=== PATIENT | male | born 1970 | race American Indian/Alaskan Native ===

== ENCOUNTER 2018-04-08 14:05 | Emergency (ER) | payer MEDICARE, MEDICAID ==
[~2018-04-08] VITALS: Ht 170.2 cm; Wt 125.0 kg
[~2018-04-08 14:05] MED LIST: ACET-2119 PO; ATEN25TA PO; BAC10T PO; DULO-31 PO; MELO15TA13 PO; SIMV20TA5 PO; TRAM50TA2 PO
[2018-04-08 14:19] VITALS: BP 130/80
== END 2018-04-08 14:44 | disposition home or self-care (01) ==
LOC: ER 14:05
DX: B34.9 Viral infection, unspecified (principal); E78.00 Pure hypercholesterolemia, unspecified; I10 Essential (primary) hypertension; G89.29 Other chronic pain; F12.90 Cannabis use, unspecified, uncomplicated; Z88.1 Allergy status to other antibiotic agents; Z88.5 Allergy status to narcotic agent; Z79.899 Other long term (current) drug therapy
CPT/HCPCS: 99281

== ENCOUNTER 2022-01-22 13:23 | Outpatient (CLI) | payer MEDICARE, MEDICAID ==
[~2022-01-22 13:23] MED LIST changes: +SIMV-42 PO; -SIMV20TA5 PO
[2022-01-22 15:54] LABS: BASOPHILS % (AUTO) 0.4 % (0-1); EOSINOPHILS % (AUTO) 0.3 % (0-6); LYMPHOCYTES # (AUTO) 2.5 X10'3 (1.1-4.8); LYMPHOCYTES % (AUTO) 25.3 % (21-51); MEAN CORPUSCULAR HEMOGLOBIN 30.5 PG (27.0-31.0); MEAN CORPUSCULAR HGB CONC 33.5 g/dL (33.0-36.5); MEAN CORPUSCULAR VOLUME 91.2 FL (78-98); MEAN PLATELET VOLUME 9.2 FL (7.4-10.4); MONOCYTES # (AUTO) 0.6 X10'3 (0-0.9); MONOCYTES % (AUTO) 6.6 % (2-12); NEUTROPHILS # (AUTO) 6.5 X10'3 (1.8-7.7); NEUTROPHILS % (AUTO) 67.4 % (42-75); PRE OP HEMATOCRIT 46.8 % (42.0-52.0); PRE OP HEMOGLOBIN 15.7 g/dL (14.0-17.9); PRE OP PLATELET COUNT 252 X10'3 (140-440); RED BLOOD COUNT 5.14 X10'6 (4.70-6.10); RED CELL DISTRIBUTION WIDTH 14.2 % (11.5-14.5)
[2022-01-22 16:10] LABS: ALBUMIN/GLOBULIN RATIO 1.1 (1.1-1.5); ALKALINE PHOSPHATASE 119 IU/L (46-116); BLOOD UREA NITROGEN 11 MG/DL (7-18); BUN/CREATININE RATIO 9.1 (5.4-32.0); CHLORIDE 103 MMOL/L (99-107); CREATININE 1.21 MG/DL (0.60-1.10); PRE OP ALT 72 U/L (30-65); PRE OP ANION GAP 11 (8-16); PRE OP AST 22 U/L (10-37); PRE OP BILIRUB, TOTAL 0.5 MG/DL (0.0-1.0); PRE OP GLUCOSE 95 MG/DL (70-104); PRE OP POTASSIUM 3.9 MMOL/L (3.4-5.1); PRE OP SODIUM 140 MMOL/L (135-145); TOTAL CARBON DIOXIDE 26.2 MMOL/L (24-32); TOTAL PROTEIN 7.7 G/DL (6.4-8.2); eGFR 63 ML/MIN
[2022-01-22] MEDS ORDERED: LISI20TA28 PO (16:40)
== END 2022-01-22 23:59 | disposition home or self-care (01) ==
LOC: LAB 13:23 → EDSTATUS 01-30 07:30
PROVIDERS: ATTEND Surgery
DX: Z01.818 Encounter for other preprocedural examination (principal); K42.9 Umbilical hernia without obstruction or gangrene; G47.30 Sleep apnea, unspecified; Z79.899 Other long term (current) drug therapy; M19.90 Unspecified osteoarthritis, unspecified site; Z98.890 Other specified postprocedural states
CPT/HCPCS: 36415; 80053; 85025; 87811

== ENCOUNTER 2022-02-04 05:48 | Day surgery (SDC) | payer MEDICARE, MEDICAID ==
[2022-02-03 14:45] LABS: BASOPHILS % (AUTO) 0.5 % (0-1); EOSINOPHILS # (AUTO) 0.1 X10'3 (0-0.9); HEMATOCRIT 47.4 % (42.0-52.0); LYMPHOCYTES # (AUTO) 3.1 X10'3 (1.1-4.8); LYMPHOCYTES % (AUTO) 37.3 % (21-51); MEAN CORPUSCULAR HEMOGLOBIN 30.4 PG (27.0-31.0); MEAN CORPUSCULAR HGB CONC 33.7 g/dL (33.0-36.5); MEAN CORPUSCULAR VOLUME 90.3 FL (78-98); MONOCYTES # (AUTO) 0.6 X10'3 (0-0.9); MONOCYTES % (AUTO) 7.4 % (2-12); NEUTROPHILS # (AUTO) 4.5 X10'3 (1.8-7.7); NEUTROPHILS % (AUTO) 53.8 % (42-75); PLATELET COUNT 241 X10'3 (140-440); RED BLOOD COUNT 5.25 X10'6 (4.70-6.10); RED CELL DISTRIBUTION WIDTH 13.7 % (11.5-14.5); WHITE BLOOD COUNT 8.3 X10'3 (4.5-11.0)
[2022-02-03 14:50] LABS: APTT 32 SECONDS (22-32)
[2022-02-03 14:54] LABS: ALBUMIN 4.1 G/DL (3.4-5.0); ANION GAP 4 (8-16); BLOOD UREA NITROGEN 10 MG/DL (7-18); BUN/CREATININE RATIO 8.6 (5.4-32.0); CALCIUM 9.3 MG/DL (8.5-10.1); CHLORIDE 106 MMOL/L (99-107); CREATININE 1.16 MG/DL (0.60-1.10); GLUCOSE 99 MG/DL (70-104); POTASSIUM 3.8 MMOL/L (3.5-5.1); SODIUM 140 MMOL/L (135-145); TOTAL CARBON DIOXIDE 29.8 MMOL/L (24-32); eGFR 66 ML/MIN
[~2022-02-04] VITALS: Ht 167.6 cm; Wt 135.4 kg
[2022-02-04] VITALS (11 sets, daily range): BP systolic 116–152; BP diastolic 57–87
[~2022-02-04 05:48] MED LIST changes: -ACET-2119 PO; -BAC10T PO; -DULO-31 PO; +LISI20TA28 PO; -MELO15TA13 PO; -TRAM50TA2 PO
[2022-02-04] MEDS ORDERED: LIDOcaine/PRILOcaine 5gm cream TP ONE (06:25)
[2022-02-04] MEDS ORDERED: LORazepam 0.5 MG tablet PO PRN (06:25)
[2022-02-04] MEDS ORDERED: normal saline 1,000 ML IV SCH (06:25)
[2022-02-04] MEDS ORDERED: diphenhydrAMINE 25mg capsule PO PRN (06:25)
[2022-02-04] MEDS ORDERED: DULO20CA50 PO (07:25)
[2022-02-04] MEDS ORDERED: SIMV5TAB58 PO (07:25)
[2022-02-04] MEDS ORDERED: LISI1TAB51 PO (07:25)
[2022-02-04] MEDS ORDERED: nitroGLYCERIN-Tridil 50MG/D5W 250 ML IV ONE (07:31)
[2022-02-04] MEDS ORDERED: iohexol 350MG/ML 100ml bottle IV ONE ×2 (07:32→08:39)
[2022-02-04] MEDS ORDERED: heparin 1,000unit/ml 10ml vial 10 ML ONE (07:32)
[2022-02-04] MEDS ORDERED: verapamil 2.5 mg/ml inj IV ONE (07:32)
[2022-02-04] MEDS ORDERED: midazolam 1 mg/ML 2ml injection ONE (07:32)
[2022-02-04] MEDS ORDERED: fentaNYL/PF 50MCG/1 ML 2ML syringe ONE (07:32)
[2022-02-04] MEDS ORDERED: LIDOcaine 1%/PF 5ML 10 MG/ML VIAL ONE (07:32)
--- NOTE | 2022-02-04 09:15 | NUR ---
Pt sitting up in bed eating ordered breakfast. Pt denies sob, denies cp. Pt site stable. DRSG CD&I, no s/s of bleeding or infection. Pt family at the bedside.
[2022-02-04] MEDS ORDERED: normal saline 1000ml 1,000 ML IV SCH (10:00)
== END 2022-02-04 14:15 | disposition home or self-care (01) ==
LOC: SSTAY O 05:48
PROVIDERS: ATTEND Internal Medicine Cardiovascular Disease
DX: R94.39 Abnormal result of other cardiovascular function study (principal); I25.10 Atherosclerotic heart disease of native coronary artery without angina pectoris; I10 Essential (primary) hypertension; G47.00 Insomnia, unspecified; F41.8 Other specified anxiety disorders; E78.5 Hyperlipidemia, unspecified; E66.9 Obesity, unspecified; M19.90 Unspecified osteoarthritis, unspecified site; G47.33 Obstructive sleep apnea (adult) (pediatric); Z79.899 Other long term (current) drug therapy; Z79.01 Long term (current) use of anticoagulants
CPT/HCPCS: 36415; 76937; 80048; 85025; 85610; 85730; 93005; 93458; 99152; 99153; C1769; C1894; J1644; J2250; J3010; J3490; J7030; Q0163; Q9967; A4615; A5120; A6258; A6402

== ENCOUNTER 2022-03-27 05:42 | Day surgery (SDC) | payer MEDICARE, MEDICAID ==
[2022-03-21 14:36] LABS: BASOPHILS # (AUTO) 0.1 X10'3 (0-0.2); BASOPHILS % (AUTO) 0.5 % (0-1); EOSINOPHILS % (AUTO) 0.2 % (0-6); LYMPHOCYTES # (AUTO) 3.2 X10'3 (1.1-4.8); LYMPHOCYTES % (AUTO) 26.5 % (21-51); MEAN CORPUSCULAR HEMOGLOBIN 30.5 PG (27.0-31.0); MEAN CORPUSCULAR VOLUME 89.6 FL (78-98); MEAN PLATELET VOLUME 8.6 FL (7.4-10.4); MONOCYTES # (AUTO) 0.8 X10'3 (0-0.9); MONOCYTES % (AUTO) 6.3 % (2-12); NEUTROPHILS # (AUTO) 8.1 X10'3 (1.8-7.7); NEUTROPHILS % (AUTO) 66.5 % (42-75); PRE OP HEMATOCRIT 49.3 % (42.0-52.0); PRE OP HEMOGLOBIN 16.8 g/dL (14.0-17.9); PRE OP PLATELET COUNT 273 X10'3 (140-440); RED CELL DISTRIBUTION WIDTH 13.6 % (11.5-14.5)
[2022-03-21 14:44] LABS: ALBUMIN 4.3 G/DL (3.4-5.0); ALBUMIN/GLOBULIN RATIO 1.2 (1.1-1.5); ALKALINE PHOSPHATASE 123 IU/L (46-116); BLOOD UREA NITROGEN 12 MG/DL (7-18); BUN/CREATININE RATIO 9.9 (5.4-32.0); CALCIUM 9.5 MG/DL (8.5-10.1); CHLORIDE 107 MMOL/L (99-107); CREATININE 1.21 MG/DL (0.60-1.10); PRE OP ALT 61 U/L (30-65); PRE OP ANION GAP 9 (8-16); PRE OP AST 23 U/L (10-37); PRE OP BILIRUB, TOTAL 0.6 MG/DL (0.0-1.0); PRE OP GLUCOSE 104 MG/DL (70-104); PRE OP POTASSIUM 3.8 MMOL/L (3.4-5.1); PRE OP SODIUM 142 MMOL/L (135-145); TOTAL CARBON DIOXIDE 26.5 MMOL/L (24-32); eGFR 63 ML/MIN
[~2022-03-27] VITALS: Ht 170.2 cm; Wt 134.5 kg
[2022-03-27] VITALS (16 sets, daily range): BP systolic 112–154; BP diastolic 57–87
--- NOTE | 2022-03-27 05:30 | NUR ---
PT PREPARED FOR SURGERY. SISTER WILL BE PTS RIDE HOME SHE IS 15 MIN AWAY. PT STATES HE IS A HARD IV STICK. IV STARTED WITHOUT DIFFICULTY. PT UP TO THE BATHROOM PRIOR TO SURGERY
[~2022-03-27 05:42] MED LIST changes: +DOCUMENT DATE & TIME OF BETA-BLOCKER PO ONE; +DULO20CA50 PO; -LISI20TA28 PO; +LISI40TA13 PO; -SIMV-42 PO; +SIMV5TAB58 PO; +ceFAZolin inj. 3,000 MG in normal saline 100ml IV soln 100 ML IV ONE; +famotidine 20mg tablet PO ONE; +ringers solution, lacted 1,000 ML IV SCH
[2022-03-27] MEDS ORDERED: LIDOcaine 1% 30ml preserv. free vial ONE (06:02)
[2022-03-27] MEDS ORDERED: BUPIVAcaine/PF 2.5 mg/ml (0.25%) 30ml vial ONE ×2 (06:02→06:59)
[2022-03-27] MEDS ORDERED: BUPIVACAINE liposomal/PF 13.3 MG/ML vial IM ONE ×4 (06:57→08:27)
[2022-03-27] MEDS ORDERED: morphine 2 MG/ML inj. syringe IV PRN (07:35)
[2022-03-27] MEDS ORDERED: proCHLORperazine 10 MG/2 ml inj IV PRN (07:35)
[2022-03-27] MEDS ORDERED: morphine 4 MG/ML inj SYRINge IV PRN (07:35)
[2022-03-27] MEDS ORDERED: ringers solution, lacted 1,000 ML IV SCH (07:35)
[2022-03-27] MEDS ORDERED: ondansetron/PF 4mg/2ml inj IV PRN (07:35)
[2022-03-27] MEDS ORDERED: meperidine/PF 25mg/ml syringe IV PRN ×3 (07:35)
[2022-03-27] MEDS ORDERED: fentaNYL/PF 50MCG/1 ML 2ML syringe ONE (07:36)
[2022-03-27] MEDS ORDERED: midazolam 1 mg/ML 2ml injection ONE (07:36)
[2022-03-27] MEDS ORDERED: propofol inj 20 ML IV ONE (07:37)
[2022-03-27] MEDS ORDERED: rocuronium 10mg/ml inj IV ONE (07:37)
[2022-03-27] MEDS ORDERED: LIDOcaine 1% 30ml preserv. free vial IJ ONE (08:27)
[2022-03-27] MEDS ORDERED: BUPIVAcaine/PF 2.5 mg/ml (0.25%) 30ml vial IJ ONE ×2 (08:27)
[2022-03-27] MEDS ORDERED: ondansetron/PF 4mg/2ml inj ONE (08:41)
[2022-03-27] MEDS ORDERED: dexamethasone sod phosphate 4mg/ml inj. ONE (08:41)
[2022-03-27] MEDS ORDERED: glycopyrrolate 0.2mg/ml inj ONE (08:42)
[2022-03-27] MEDS ORDERED: neostigmine methylsulfate 1 MG/ML 10ml vial ONE (08:42)
[2022-03-27] MEDS ORDERED: sugammadex 200mg/2ml injection IV ONE (08:55)
--- NOTE | 2022-03-27 09:01 | NUR ---
Received from OR via [facility], accompanied by Anesthesiologist DR MARTIN and report given by Anesthesiologist AND CONTINUING EDUCATION DEAN. PT DROWSY, DENIES PAIN, ABDOMINAL BINDER ON AND IN PLACE, CDI, 4 BANDAIDS COVERING LAP SITE CDI. Addendum: 03/27/22 at 0915 by Makenzie Prakash RN Amended: Links added.
[2022-03-27] MEDS ORDERED: oxyCODONE/APAP 5-325mg tablet PO PRN (09:05)
--- NOTE | 2022-03-27 11:31 | NUR ---
PT UP AND ABLE TO AMBULATE SAFELY, NO C/O. D/C INSTRUCTIONS GIVEN AND GONE OVER W/PT WHO VERBALIZED UNDERSTANDING. PT D/CD TO HOME VIA W/C TO PRIVATE VEHICLE W/O INCIDENT. Addendum: 03/27/22 at 1145 by Makenzie Prakash RN Amended: Links added.
== END 2022-03-27 11:31 | disposition home or self-care (01) ==
LOC: PAS 05:42
PROVIDERS: ATTEND Surgery
DX: K42.0 Umbilical hernia with obstruction, without gangrene (principal); Z79.899 Other long term (current) drug therapy; Z88.1 Allergy status to other antibiotic agents; Z88.6 Allergy status to analgesic agent; Z91.011 Allergy to milk products; Z98.890 Other specified postprocedural states; G89.18 Other acute postprocedural pain
CPT/HCPCS: 36415; 49653; 64488; 80053; 82948; 85025; C1781; C9290; J0690; J1100; J2175; J2250; J2405; J2704; J2710; J3010; J3490; J7030; J7120; Z7506; Z7508; Z7512; A4215; A4618

== ENCOUNTER 2024-09-21 15:14 | Emergency (ER) | payer MEDICARE, MEDICAID ==
[~2024-09-21] VITALS: Ht 167.6 cm; Wt 115.0 kg
[~2024-09-21 15:14] MED LIST changes: -DOCUMENT DATE & TIME OF BETA-BLOCKER PO ONE; -ceFAZolin inj. 3,000 MG in normal saline 100ml IV soln 100 ML IV ONE; -famotidine 20mg tablet PO ONE; -ringers solution, lacted 1,000 ML IV SCH
[2024-09-21 15:24] VITALS: TEMP 97.6
--- NOTE | 2024-09-21 15:28 | ELECTROCARDIOGRAPH REPORT ---
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
--- NOTE | 2024-09-21 15:57 | RADIOLOGY REPORT ---
CHEST RADIOGRAPH Indication: CP Technique: Single frontal view of the chest was obtained Comparison: None FINDINGS: Lines and Tubes: None Lungs: No focal consolidation. Pleura: No effusion. No pneumothorax. Cardiomediastinal contours: Unremarkable Bones: No acute osseous abnormality. IMPRESSION: 1. No acute cardiopulmonary disease.
[2024-09-21 15:58] LABS: BASOPHILS # (AUTO) 0.1 X10'3 (0-0.2); BASOPHILS % (AUTO) 0.7 % (0-1); EOSINOPHILS # (AUTO) 0.1 X10'3 (0-0.9); EOSINOPHILS % (AUTO) 0.7 % (0-6); HEMATOCRIT 49.2 % (42.0-52.0); HEMOGLOBIN 16.8 g/dl (14.0-17.9); LYMPHOCYTES # (AUTO) 3.2 X10'3 (1.1-4.8); LYMPHOCYTES % (AUTO) 35.8 % (21-51); MEAN CORPUSCULAR HEMOGLOBIN 30.3 PG (27.0-31.0); MEAN CORPUSCULAR HGB CONC 34.1 g/dL (33.0-36.5); MEAN CORPUSCULAR VOLUME 88.9 FL (78-98); MEAN PLATELET VOLUME 8.9 FL (7.4-10.4); MONOCYTES # (AUTO) 0.5 X10'3 (0-0.9); MONOCYTES % (AUTO) 5.5 % (2-12); NEUTROPHILS # (AUTO) 5.1 X10'3 (1.8-7.7); NEUTROPHILS % (AUTO) 57.3 % (42-75); PLATELET COUNT 245 X10'3 (140-440); RED BLOOD COUNT 5.54 X10'6 (4.70-6.10); RED CELL DISTRIBUTION WIDTH 14.1 % (11.5-14.5); WHITE BLOOD COUNT 8.9 X10'3 (4.5-11.0)
[2024-09-21 16:16] LABS: ALANINE AMINOTRANSFERASE 68 U/L (12-78); ALBUMIN 4.2 G/DL (3.4-5.0); ALBUMIN/GLOBULIN RATIO 1.2 (1.1-1.5); ALKALINE PHOSPHATASE 134 IU/L (46-116); ANION GAP 11 (8-16); ASPARTATE AMINO TRANSFERASE 30 U/L (10-37); BILIRUBIN,TOTAL 0.9 MG/DL (0.1-1.0); BLOOD UREA NITROGEN 8 MG/DL (7-18); BUN/CREATININE RATIO 6.5 (10.0-20.0); CALCIUM 9.3 MG/DL (8.5-10.1); CHLORIDE 108 MMOL/L (99-107); CREATININE 1.24 MG/DL (0.60-1.10); GLUCOSE 105 MG/DL (70-104); POTASSIUM 3.8 MMOL/L (3.5-5.1); SODIUM 145 MMOL/L (135-145); TOTAL CARBON DIOXIDE 25.7 MMOL/L (24-32); TOTAL PROTEIN 7.7 G/DL (6.4-8.2); eCRCL 61 ML/MIN; eGFR 61 ML/MIN
[2024-09-21 16:25] LABS: PRO BRAIN NATRIURETIC PEPTIDE 45 PG/ML (0-125)
[2024-09-21] MEDS ORDERED: HYDR-3686 PO (16:31)
--- NOTE | 2024-09-21 16:32 | Physician Documentation ---
History of Present Illness ~ Chief Complaint: Anxiety Stated Complaint: IRREG HEART RATE Time Seen by MD: 15:45 Primary Medical Doctor: Beto SANCHES 53-year-old male presents with complaints of anxiety stress palpitations for the last week. She felt like his blood pressure has not increased arm. He has also been drinking caffeine. Denies any chest pain or shortness of breath nausea vomiting Day of Onset: September 21, 2024 Medication Reconciliation Allergies: Coded Allergies: ciprofloxacin (Verified Allergy, Unknown, HIVES, 09/21/24) hydrocodone (Verified Adverse Reaction, Unknown, ITCHY, 09/21/24) Uncoded Allergies: DAIRY (Allergy, Unknown, 11/14/14) Scheduled Atenolol (Atenolol), 1 TABLET PO DAILY, (Reported) Duloxetine Hcl* (Cymbalta*), 1 CAP PO DAILY, (Reported) Lisinopril* (Lisinopril*), 0.5 TAB PO DAILY, (Reported) Simvastatin* (Zocor*), 1 TAB PO HS, (Reported) Past Medical History Past Medical History: High Cholesterol, Hypertension, Chronic Pain, Chronic Back Pain Past Surgical History: no surgical history Alcohol Use: None Drug Use: marijuana Lives with: Family Lives In: Home Review of Systems All Other Systems at this time: Reviewed and Negative ROS As stated above in the HPI, otherwise all systems are reviewed and negative. Physical Exam Vital Signs: Temperature: 97.6, Source: Temporal, Heart Rate: 97, Respiratory Rate: 17, BP: 142/78, Pulse Oximetry: 99, Weight: 115.000 Physical Exam General: Alert, no apparent distress. Neurologic: Oriented x4. Psychiatric: Normal mood and affect. Skin: Normal color, warm and dry. No edema, no ecchymosis. Progress Results/Orders Results/Orders Vital Signs 09/21/24 15:24 Temp 97.6 Pulse 97 Resp 17 B/P (MAP) 142/78 Pulse Ox 99 Laboratory Tests Test 09/21/24 15:29 White Blood Count 8.9 Red Blood Count 5.54 Hemoglobin 16.8 Hematocrit 49.2 Mean Corpuscular Volume 88.9 Mean Corpuscular Hemoglobin 30.3 Mean Corpuscular Hemoglobin Concent 34.1 Red Cell Distribution Width 14.1 Platelet Count 245 Mean Platelet Volume 8.9 Neutrophils (%) (Auto) 57.3 Lymphocytes (%) (Auto) 35.8 Monocytes (%) (Auto) 5.5 Eosinophils (%) (Auto) 0.7 Basophils (%) (Auto) 0.7 Neutrophils # (Auto) 5.1 Lymphocytes # (Auto) 3.2 Monocytes # (Auto) 0.5 Eosinophils # (Auto) 0.1 Basophils # (Auto) 0.1 CBC Comment Sodium Level 145 Potassium Level 3.8 Chloride Level 108 H Carbon Dioxide Level 25.7 Anion Gap 11 Blood Urea Nitrogen 8 Creatinine 1.24 H Estimated GFR/1.73 m2 61 BUN/Creatinine Ratio 6.5 L Glucose Level 105 H Calcium Level 9.3 Total Bilirubin 0.9 Aspartate Amino Transf (AST/SGOT) 30 Alanine Aminotransferase (ALT/SGPT) 68 Alkaline Phosphatase 134 H Troponin I High Sensitivity 11 Pro-B-Type Natriuretic Peptide 45 Total Protein 7.7 Albumin 4.2 Globulin 3.5 Albumin/Globulin Ratio 1.2 Chemistry Comments Medical Decision Making Findings Patient presents with a helmet clinical indicators for a stress-induced anxiety. I educated him on avoiding triggers like alcohol insomnia caffeine stress going to send him home with a script of a Atarax to help with sleep and anxiety and advised him to follow up in the outpatient setting. He is not presenting with any acute psychosis or concerns over HI or SI Differential Dx:Considerations: Include: Alcohol abuse, Anxiety, Bipolar disorder, Conversion disorder, Depression, Encephaloathy, Homicidal, Panic disorder, Personality disorder, Schizophrenia, Substance abuse, Suicidal, Other Departure Disposition: 01 HOME / SELF CARE / HOMELESS Impression: Primary Impression: Anxiety Discharge Instructions: Panic Attack Referrals: NO PRIMARY CARE PROVIDER (PCP) Prescriptions Hydroxyzine Hcl* (Atarax*) 25 Mg Tablet 1 TAB PO Q12H for anxiety for 30 Days, #60 TAB Prov: GERSON CRAWFORD NP 09/21/24 Education Educated: Patient Educated regarding: diagnosis GERSON CRAWFORD NP September 21, 2024 16:32
[2024-09-21 16:49] VITALS: BP 142/78; PULSE 97; RESP 15; O2SAT 99
== END 2024-09-21 16:51 | disposition home or self-care (01) ==
LOC: ER 15:15
DX: F41.9 Anxiety disorder, unspecified (principal); E78.00 Pure hypercholesterolemia, unspecified; I10 Essential (primary) hypertension; F12.90 Cannabis use, unspecified, uncomplicated; Z88.1 Allergy status to other antibiotic agents; Z88.5 Allergy status to narcotic agent; Z88.8 Allergy status to other drugs, medicaments and biological substances
CPT/HCPCS: 36415; 71045; 80053; 83880; 84484; 85025; 93005; 99285

== ENCOUNTER 2024-09-28 14:10 | Emergency (ER) | payer MEDICARE, MEDICAID ==
[~2024-09-28] VITALS: Ht 167.6 cm; Wt 143.0 kg
[~2024-09-28 14:10] MED LIST changes: +HYDR-3686 PO
--- NOTE | 2024-09-28 15:16 | ELECTROCARDIOGRAPH REPORT ---
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 Reading MD: Dr. Shabana Thomas Measurements Intervals [place] Rate: 61 P: 42 NM: 203 QRS: 46 QRSD: 97 T: 20 QT: 412 QTc: 415 Interpretive Statements Sinus rhythm Borderline prolonged NM interval Electronically Signed On 09-28-2024 16:26:[address] Shabana Thomas Please click the below link to view image of tracing.
--- NOTE | 2024-09-28 17:32 | Physician Documentation ---
History of Present Illness ~ Chief Complaint: Anxiety Stated Complaint: HEART PALP Time Seen by MD: 16:50 Primary Medical Doctor: Beto Mode of Arrival: EMS, Stretcher [facility] This is a 53-year-old male brought in by EMS for heart palpitations, lightheadedness, and nausea present intermittently for the last three weeks. Patient reports that has been feeling lightheaded today and had intermittent episodes where he felt sweaty and had episodes of nausea without vomiting, add itionally reporting intermittent left axillary pain described as pressure. Patient reports that he had episodes similar to this yesterday as well. She reports that he contact his primary care provider about these symptoms and was advised to come to the emergency department. Patient reports he was recently seen here for anxiety and prescribed Atarax for anxiety, patient reports that he has had significant insomnia lately with episodes of palpitations and anxiety keeping him up at night patient reports that Atarax does help with this but it does take some time to kick in. Patient reports that he has had a stress test within the last week with Dr. Davis though has not heard results back yet. Patient reports he has a follow up appointment primary care provider tomorrow. Medication Reconciliation Allergies: Coded Allergies: ciprofloxacin (Verified Allergy, Unknown, HIVES, 09/28/24) hydrocodone (Verified Adverse Reaction, Unknown, ITCHY, 09/28/24) Uncoded Allergies: DAIRY (Allergy, Unknown, 11/14/14) Scheduled Atenolol (Atenolol), 1 TABLET PO DAILY, (Reported) Duloxetine Hcl* (Cymbalta*), 1 CAP PO DAILY, (Reported) Hydroxyzine Hcl* (Atarax*), 1 TAB PO Q12H Lisinopril* (Lisinopril*), 0.5 TAB PO DAILY, (Reported) Simvastatin* (Zocor*), 1 TAB PO HS, (Reported) Past Medical History Past Medical History: High Cholesterol, Hypertension, Chronic Pain, Chronic Back Pain Past Surgical History: no surgical history Alcohol Use: None Drug Use: marijuana Lives with: Family Lives In: Home Review of Systems ROS Lightheadedness and palpitations as stated above in the HPI, otherwise all systems are reviewed and negative. Physical Exam Vital Signs: Temperature: 98.0, Source: Oral, Heart Rate: 57, Respiratory Rate: 21, BP: 139/74, Pulse Oximetry: 98, Weight: 143.000 Oxygen Flow Rate: 0 Physical Exam VITALS: Reviewed and as above. GENERAL: Alert, nontoxic appearing, no apparent distress. HEENT: EOMI, PERRLA, no nystagmus RESPIRATORY: No increased work of breathing, no respiratory distress, speaking in full clear sentences CV: Rate and rhythm no murmur BACK: No CVA tenderness NEURO: Alert and oriented x 4, GCS 15. No facial droop. Normal muscle strength and tone, normal finger to nose coordination and heel to causey glide, speech clear, and normal gait. Negative Romberg, no pronator drift. Progress Results/Orders Results/Orders Orders - ELBERT MICHAEL SKELP PROCESSOR Chest,Single View (09/28/24 17:26) Monitor (09/28/24 17:) Saline Lock (09/28/24 17:) Oxygen (09/28/24 17:26) Completed Orders - ELBERT MICHAEL SKELP PROCESSOR Chest,Single View (09/28/24 17:26) Cbc/Diff (09/28/24 17:26) PBNP (09/28/24 17:26) CMP (09/28/24 17:26) Hs Troponin I W Calculations (09/28/24 17:26) Hs Troponin I W Calculations (09/28/24 19:26) Ondansetron Inj. (Zofran 4mg/2ml Vial) (09/28/24 17:30) Medications Received in ER Medications (Trade) Dose Ordered Sig/Rajendra Route PRN Reason Start Time Stop Time Status Last Admin Dose Admin (Zofran 4mg/2ml vial) 4 mg ONCE ONCE IV 09/28/24 17:30 09/28/24 17:31 DC 09/28/24 18:01 4 MG Vital Signs 09/28/24 09/28/24 09/28/24 09/28/24 14:18 14:20 15:02 18:04 Temp 98.0 98.0 98.0 Pulse 61 57 64 Resp 14 12 21 17 B/P (MAP) 151/84 139/74 (95) 138/63 (88) Pulse Ox 97 98 98 O2 Flow Rate 0 0 0 09/28/24 09/28/24 19:27 19:43 Pulse 62 62 Resp 16 16 B/P (MAP) 137/73 (94) 137/73 Pulse Ox 97 97 Laboratory Tests Test 09/28/24 17:38 09/28/24 18:17 White Blood Count 10.6 Red Blood Count 5.42 Hemoglobin 16.1 Hematocrit 48.3 Mean Corpuscular Volume 89.2 Mean Corpuscular Hemoglobin 29.8 Mean Corpuscular Hemoglobin Concent 33.4 Red Cell Distribution Width 13.8 Platelet Count 229 Mean Platelet Volume 8.7 Neutrophils (%) (Auto) 63.0 Lymphocytes (%) (Auto) 30.5 Monocytes (%) (Auto) 5.7 Eosinophils (%) (Auto) 0.2 Basophils (%) (Auto) 0.6 Neutrophils # (Auto) 6.7 Lymphocytes # (Auto) 3.2 Monocytes # (Auto) 0.6 Eosinophils # (Auto) 0.0 Basophils # (Auto) 0.1 CBC Comment Sodium Level 142 Potassium Level 4.1 Chloride Level 105 Carbon Dioxide Level 30.4 Anion Gap 7 L Blood Urea Nitrogen 7 Creatinine 1.22 H Estimated GFR/1.73 m2 62 BUN/Creatinine Ratio 5.7 L Glucose Level 102 Calcium Level 9.1 Total Bilirubin 0.8 Aspartate Amino Transf (AST/SGOT) 24 Alanine Aminotransferase (ALT/SGPT) 66 Alkaline Phosphatase 129 H Troponin I High Sensitivity 11 12 Pro-B-Type Natriuretic Peptide 63 Total Protein 7.3 Albumin 3.8 Globulin 3.5 Albumin/Globulin Ratio 1.1 Chemistry Comments Troponin I High Sens Percent Delta 9 Troponin I Hi Sens Absolute Change 1 EKG/XRAY/CT/US/VASC/MRI EKG : Additional Comment EKG interpreted by myself as sinus rhythm at a rate of [address] segment elevation or depression Chest X-Ray : Additional Comments CHEST RADIOGRAPH Indication: CP Technique: Single frontal view of the chest was obtained Comparison: DI CHEST,SINGLE VIEW on DOS: 09/21/24 FINDINGS: Lines and Tubes: None Lungs: No focal consolidation. Pleura: No effusion. No pneumothorax. Cardiomediastinal contours: Unremarkable Bones: No acute osseous abnormality. IMPRESSION: 1. No acute cardiopulmonary disease. Electronically Signed by:CURTIS CASTRO MD Date & Time: 09/28/24 1820 Dictated by: CURTIS CASTRO MD Dictation date and time: 09/28/24 5501 I have reviewed and agree with the radiology report. I have reviewed and interpreted the imaging as: No pneumothorax or focal consolidation Heart Score: Heart Score Response (Comments) Value History Slightly Suspicious 0 Age 45-64 1 Risk Factors 1 or 2 risk factors 1 Troponin Normal limit 0 Total 2 Medical Decision Making Findings This 53-year-old male presented for heart palpitations, lightheadedness, and nausea present intermittently for the last three weeks with his latest episode today reporting primarily lightheadedness without vertigo, patient's physical exam was benign with a normal neurologic exam without evidence of gait disturbance, focal weakness, focal sensory deficit, cerebellar signs or imbalance. Patient's vital signs stable without evidence of hypoxia or hypotension. Due to patient's report of palpitations his EKG was obtained though this did not show arrhythmia or of infarction or ischemia. Labs did not demonstrate elevated troponin and not demonstrate evidence of electrolyte or metabolic derangement. Chest x-ray did not demonstrate evidence of pneumonia, pneumothorax, or rib fractures. It is reassuring patient reports he had recent stress tests and has follow up tomorrow with his primary care provider. Patient's heart score 2 placing patient in lower risk group for major cardiac event. Given patient's report of significant somnolence anxiety recently believe symptoms may be related, patient is stable for outpatient follow up. Discussed with the patient the importance of following up with his primary care provider as scheduled and patient provided careful return to care precautions which she verbalized understanding of. Differential Dx:Considerations: Include: angina, chest wall pain, cholelithiasis, CHF, costochondritis, esophageal reflux/spasm, myocardial infarction, pneumonia, pneumothorax, pulmonary embolus, other (Anxiety) Departure Time of Disposition: 19:33 Disposition: 01 HOME / SELF CARE / HOMELESS Impression: Primary Impression: Dizziness Additional Impression: Palpitations Condition: Improved Discharge Instructions: Insomnia, Managing Anxiety, Adult Additional Instructions: Your physical exam lab work and EKG were all reassuring, can not definitively say what your symptoms are caused by but given your report of recent insomnia and poor diet this could be the cause though I recommend you follow up as scheduled tomorrow with your primary care for further workup. Please follow up with your primary care provider in the next few days. Please return to the emergency department for any new or worsening concerning symptoms including but not limited to chest pain or shortness of breath. Referrals: NO PRIMARY CARE PROVIDER (PCP) Education Educated: Patient Educated regarding: diagnosis, treatment, prognosis, need for follow up Signature Scribe Signature: No Scribe Attestation: The note accurately reflects work and decisions made by me.JELENA Olvera 09/28/24 23:00 ELBERT MICHAEL September 28, 2024 17:32
[2024-09-28 17:45] LABS: BASOPHILS # (AUTO) 0.1 X10'3 (0-0.2); BASOPHILS % (AUTO) 0.6 % (0-1); EOSINOPHILS % (AUTO) 0.2 % (0-6); HEMATOCRIT 48.3 % (42.0-52.0); HEMOGLOBIN 16.1 g/dl (14.0-17.9); LYMPHOCYTES # (AUTO) 3.2 X10'3 (1.1-4.8); LYMPHOCYTES % (AUTO) 30.5 % (21-51); MEAN CORPUSCULAR HEMOGLOBIN 29.8 PG (27.0-31.0); MEAN CORPUSCULAR HGB CONC 33.4 g/dL (33.0-36.5); MEAN CORPUSCULAR VOLUME 89.2 FL (78-98); MEAN PLATELET VOLUME 8.7 FL (7.4-10.4); MONOCYTES # (AUTO) 0.6 X10'3 (0-0.9); MONOCYTES % (AUTO) 5.7 % (2-12); NEUTROPHILS # (AUTO) 6.7 X10'3 (1.8-7.7); PLATELET COUNT 229 X10'3 (140-440); RED BLOOD COUNT 5.42 X10'6 (4.70-6.10); RED CELL DISTRIBUTION WIDTH 13.8 % (11.5-14.5); WHITE BLOOD COUNT 10.6 X10'3 (4.5-11.0)
[2024-09-28] MEDS: ondansetron/PF 4mg/2ml inj IV ONE (18:01)
[2024-09-28 18:04] VITALS: TEMP 98
[2024-09-28 18:04] LABS: ALANINE AMINOTRANSFERASE 66 U/L (12-78); ALBUMIN 3.8 G/DL (3.4-5.0); ALBUMIN/GLOBULIN RATIO 1.1 (1.1-1.5); ALKALINE PHOSPHATASE 129 IU/L (46-116); ANION GAP 7 (8-16); ASPARTATE AMINO TRANSFERASE 24 U/L (10-37); BILIRUBIN,TOTAL 0.8 MG/DL (0.1-1.0); BLOOD UREA NITROGEN 7 MG/DL (7-18); BUN/CREATININE RATIO 5.7 (10.0-20.0); CALCIUM 9.1 MG/DL (8.5-10.1); CHLORIDE 105 MMOL/L (99-107); CREATININE 1.22 MG/DL (0.60-1.10); GLUCOSE 102 MG/DL (70-104); POTASSIUM 4.1 MMOL/L (3.5-5.1); SODIUM 142 MMOL/L (135-145); TOTAL CARBON DIOXIDE 30.4 MMOL/L (24-32); TOTAL PROTEIN 7.3 G/DL (6.4-8.2); eCRCL 62 ML/MIN; eGFR 62 ML/MIN
[2024-09-28 18:09] LABS: PRO BRAIN NATRIURETIC PEPTIDE 63 PG/ML (0-125)
--- NOTE | 2024-09-28 18:23 | RADIOLOGY REPORT ---
CHEST RADIOGRAPH Indication: CP Technique: Single frontal view of the chest was obtained Comparison: DI CHEST,SINGLE VIEW on DOS: 09/21/24 FINDINGS: Lines and Tubes: None Lungs: No focal consolidation. Pleura: No effusion. No pneumothorax. Cardiomediastinal contours: Unremarkable Bones: No acute osseous abnormality. IMPRESSION: 1. No acute cardiopulmonary disease.
[2024-09-28 19:43] VITALS: BP 137/73; PULSE 62; RESP 16; O2SAT 97
== END 2024-09-28 19:49 | disposition home or self-care (01) ==
LOC: ER 14:10
DX: R42 Dizziness and giddiness (principal); R00.2 Palpitations; E78.00 Pure hypercholesterolemia, unspecified; I10 Essential (primary) hypertension; Z88.1 Allergy status to other antibiotic agents; Z88.5 Allergy status to narcotic agent; Z88.8 Allergy status to other drugs, medicaments and biological substances
CPT/HCPCS: 36415; 71045; 80053; 83880; 84484; 85025; 93005; 96374; 99285; J2405

== ENCOUNTER 2024-12-01 15:49 | Outpatient (CLI) | payer MEDICARE, MEDICAID ==
[~2024-12-01 15:49] MED LIST changes: -HYDR-3686 PO
--- NOTE | 2024-12-01 18:53 | RADIOLOGY REPORT ---
Indication: LOWER BACK PAIN Technique: DI LUMBAR SPINE COMPLTELSPINE CMP Comparison: None FINDINGS/IMPRESSION: Lumbar vertebral body heights are maintained. Moderate to advanced lumbar multilevel disc space narro wing with endplate sclerosis. 3 mm retrolisthesis of L2 upon L3.2 mm retrolisthesis of L1 upon L2. Pr ominent anterior osteophytosis. 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 Mild bilateral sacroiliac degenerative j oint disease.
== END 2024-12-01 23:59 | disposition home or self-care (01) ==
LOC: RAD 15:49
PROVIDERS: ATTEND Student in an Organized Health Care Education/Training Program
DX: M43.16 Spondylolisthesis, lumbar region (principal); M48.061 Spinal stenosis, lumbar region without neurogenic claudication; M25.78 Osteophyte, vertebrae; M54.50 Low back pain, unspecified; G89.29 Other chronic pain; M19.09 Primary osteoarthritis, other specified site
CPT/HCPCS: 72110